=== PATIENT | female | born 1955 | race Caucasian/White ===

== ENCOUNTER 2017-08-08 07:47 | Emergency (ER) | payer BC ==
[2017-08-08 08:00] VITALS: BP 140/86
--- NOTE | 2017-08-08 08:22 | UC ---
Respiratory Complaint HPI - HPI Summary HPI Summary: Patient states she was ill with URI about two weeks ago, and then her symptoms improved, then she had to go on a business trip and her symptoms returned. She is complaining of PND, cough and not chest congestion. She states she is experiencing cough that has been keeping her up at night.. She dneies fever, chills, chest or abdominal pain, nausea, vomiting, diarrhea. - History of Current Complaint Chief Complaint: UCGeneralIllness Stated Complaint: SINUS ISSUE Time Seen by Provider: 08/08/17 08:08 Hx Obtained From: Patient Hx Last Menstrual Period: 3 yrs Onset/Duration: Gradual Onset, Lasting Weeks Timing: Intermittent Episodes Severity Initially: Mild Severity Currently: Moderate Pain Intensity: 1 Character: Cough: Nonproductive Associated Signs And Symptoms: Positive: URI, Nasal Congestion, Sinus Discomfort - Risk Factors Pulmonary Embolism Risk Factors: Negative Cardiac Risk Factors: Negative Pseudomonas Risk Factors: Negative Tuberculosis Risk Factors: Negative - Allergies/Home Medications Allergies/Adverse Reactions: Allergies Allergy/AdvReac Type Severity Reaction Status Date / Time No Known Allergies Allergy Verified 08/08/17 07:56 PMH/Surg Hx/FS Hx/Imm Hx Previously Healthy: Yes - Surgical History Surgical History: None - Family History Known Family History: Positive: Hypertension - Social History Occupation: Employed Full-time Alcohol Use: None Substance Use Type: None Smoking Status (MU): Never Smoked Tobacco Have You Smoked in the Last Year: No Review of Systems Constitutional: Negative Skin: Negative Eyes: Negative ENT: Nasal Discharge, Sinus Congestion, Sinus Pain/Tenderness Respiratory: Negative Cardiovascular: Negative Gastrointestinal: Negative Genitourinary: Negative Motor: Negative Neurovascular: Negative Musculoskeletal: Negative Neurological: Negative Psychological: Negative Is Patient Immunocompromised?: No All Other Systems Reviewed And Are Negative: Yes Physical Exam Triage Information Reviewed: Yes Appearance: Well-Appearing Vital Signs: Initial Vital Signs Temp 97.9 F 08/08/17 07:57 Pulse 75 08/08/17 07:57 Resp 16 08/08/17 07:57 BP 140/86 08/08/17 07:57 Pulse Ox 98 08/08/17 07:57 Vital Signs Reviewed: Yes Eye Exam: Normal ENT Exam: Normal, Other - turbinates erythmatous, edematous, with injection. 2+. ENT: Positive: Sinus tenderness, Uvula midline Dental Exam: Normal Neck exam: Normal Neck: Positive: 1 Respiratory Exam: Normal Cardiovascular Exam: Normal Abdominal Exam: Normal Musculoskeletal Exam: Normal Neurological Exam: Normal Psychological Exam: Normal Skin Exam: Normal UC Diagnostic Evaluation - Laboratory O2 Sat by Pulse Oximetry: 98 Respiratory Course/Dx - Course Course Of Treatment: Patient presents with reocurring PND, cough and chest congestion. Aguilar hs anontoxic appearance and normal vital signs. Her clinical findings are consistent with sinusitis and will be treated with Nasonex, and Augmentin. - Differential Dx/Diagnosis Differential Diagnosis/HQI/PQRI: Sinusitis Provider Diagnoses: sinusitis Discharge - Discharge Plan Condition: Stable Disposition: HOME Prescriptions: Amoxicillin/Clavulanate TAB* [Augmentin TAB 500 mg*] 500 mg PO BID #20 tab Mometasone Furoate [Nasonex] 17 gm NS DAILY #1 spray.pump Patient Education Materials: Sinusitis (ED) Referrals: No Primary Care Phys,NOPCP [Primary Care Provider] -
== END 2017-08-08 08:20 | disposition home or self-care (01) ==
LOC: UCEAST 07:47
DX: J32.9 Chronic sinusitis, unspecified (principal)
CPT/HCPCS: 99202; G0463

== ENCOUNTER 2017-08-13 15:40 | Emergency (ER) | payer BC ==
[2017-08-13 19:16] VITALS: BP 157/83
--- NOTE | 2017-08-13 19:46 | UC ---
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 Onset/Duration: Lasting Days Severity: Severe Pain Intensity: 0 Cough: Nonproductive - Allergies/Home Medications Allergies/Adverse Reactions: Allergies Allergy/AdvReac Type Severity Reaction Status Date / Time No Known Allergies Allergy Verified 08/08/17 07:56 PMH/Surg Hx/FS Hx/Imm Hx - Additional Past Medical History Additional PMH: none - Surgical History Surgical History: Yes Surgery Procedure, Year, and Place: 2x c-sec - Family History Known Family History: Positive: Hypertension - Social History Alcohol Use: None Substance Use Type: None Smoking Status (MU): Never Smoked Tobacco Have You Smoked in the Last Year: No Review of Systems Constitutional: Negative Skin: Negative Eyes: Negative ENT: Sinus Congestion, Sinus Pain/Tenderness Respiratory: Negative Cardiovascular: Negative Gastrointestinal: Negative Genitourinary: Negative Motor: Negative Neurovascular: Negative Musculoskeletal: Negative Neurological: Negative Psychological: Negative All Other Systems Reviewed And Are Negative: Yes Physical Exam Triage Information Reviewed: Yes Vital Signs: Initial Vital Signs Temp 36.7 C 08/13/17 19:09 Pulse 88 08/13/17 19:09 Resp 16 08/13/17 19:09 BP 157/83 08/13/17 19:09 Pulse Ox 95 08/13/17 19:09 Eye Exam: Normal ENT: Positive: Nasal congestion, Nasal drainage, Sinus tenderness Dental Exam: Normal Neck exam: Normal Neck: Positive: 1 Respiratory Exam: Normal Cardiovascular Exam: Normal Abdominal Exam: Normal Musculoskeletal Exam: Normal Neurological Exam: Normal Psychological Exam: Normal Skin Exam: Normal Throat Pain/Nasal Course/Dx - Course Course Of Treatment: Elevated BP with acute illness - Differential Dx/Diagnosis Provider Diagnoses: Nasal congestion. Viral sinusitis. Elevated BP without h/ o HTN. Elevated BP in acute illness Discharge - Discharge Plan Condition: Stable Disposition: HOME Prescriptions: Pseudoephedrine HCL ER TAB* [Sudafed 12 Hour*] 120 mg PO BID 5 Days #10 tab.er Patient Education Materials: Rhinosinusitis (ED) Referrals: No Primary Care Phys,NOPCP [Primary Care Provider] - Additional Instructions: please take benadryl at night as directed if nasal congestion persists in spite of taking prescribed medication
== END 2017-08-13 20:02 | disposition home or self-care (01) ==
LOC: UCEAST 15:40
DX: R09.81 Nasal congestion (principal); J32.8 Other chronic sinusitis; R03.0 Elevated blood-pressure reading, without diagnosis of hypertension
CPT/HCPCS: 99212; G0463